=== PATIENT | female | born 1965 | race Caucasian/White ===

== ENCOUNTER 2017-03-29 10:01 | Emergency (ER) | payer OTHER ==
[~2017-03-29] VITALS: Ht 170.2 cm; Wt 64.0 kg
[2017-03-29 10:03] VITALS: BP 136/66; PULSE 65; RESP 16; TEMP 98.2; O2SAT 99
--- NOTE | 2017-03-29 10:17 | PD ---
HPI . left side back pain Chief Complaint: Back/ Neck Pain or Injury Time Seen by Provider: 10:17 Travel History International Travel<30 days: No Contact w/Intl Traveler<30days: No Traveled to known affect area: No History of Present Illness HPI 52 yr old female here with c/o left sided back pain for 1 week s/p fall. She has pain in her paraspinal muscles. She tells me she fell as soon as she turned 51 and hit her right side and has neurosurgery f/u. Then about a week ago she hit her left side. The pain seems to be in her muscles. She rates is as 9/10 and says she knows she can't get much meds here, but would be willing to get something and wait to drive home. She denies any complaints, no hx of kidney stones, no bowel or bladder dysfunction, no saddle anesthesia. PFSH Past Medical History ?: Not Social History Tobacco Use: No Allergies-Medications (Allergen,Severity, Reaction): Coded Allergies: No Known Allergies (Unverified , 03/29/17) Reported Meds & Prescriptions Reported Meds & Active Scripts Active Robaxin (Methocarbamol) 500 Mg Tab 500 Mg PO TID Ibuprofen 800 Mg Tab 800 Mg PO TID Review of Systems General / Constitutional: No: Fever Eyes: No: Visual changes HENT: No: Headaches Cardiovascular: No: Chest Pain or Discomfort Respiratory: No: Shortness of Breath Gastrointestinal: No: Abdominal Pain Genitourinary: No: Dysuria Musculoskeletal: Positive: Pain (left paraspinal muscles) Skin: No Rash Neurologic: No: Weakness Psychiatric: No: Depression Endocrine: No: Polydipsia Hematologic/Lymphatic: No: Easy Bruising Physical Exam Narrative GENERAL: AAO x 3, no acute distress, Well-nourished, well-developed patient. SKIN: Warm and dry. No visible rashes or bruising. HEAD: Normocephalic and atraumatic. EYES: No scleral icterus. No injection or drainage. ENT: No nasal drainage noted. Mucous membranes pink. Airway patent. NECK: Supple, trachea midline. No JVD. CARDIOVASCULAR: Regular rate and rhythm without murmurs, gallops, or rubs. RESPIRATORY: Breath sounds equal bilaterally. No accessory muscle use. No rhonchi or rales. GASTROINTESTINAL: Abdomen soft, non-tender, nondistended. EXTREMITIES: No cyanosis or edema. BACK: tenderness along left paraspinal muscles, no spinous process tenderness, ambulatory without difficulty NEURO: CN II-12 intact, cabin cleaner strength normal b/l, UE and LE 5/5, no focal deficits PSYCH: AAO x 3, normal affect. Data Data Last Documented VS Vital Signs Date Time Temp Pulse Resp B/P Pulse Ox O2 Delivery O2 Flow Rate FiO2 03/29/17 10:25 97.8 68 16 135/66 99 03/29/17 10:03 Room Air MDM Medical Decision Making Medical Screen Exam Complete: Yes Emergency Medical Condition: Yes Medical Record Reviewed: Yes Differential Diagnosis lumbar paraspinal muscle strain, lumbago, less likely nephrolithiasis Narrative Course 52 yr old female here with left paraspinal muscle tenderness. Exam is unremarkable except for paraspinal muscle tenderness. Unfortunate patient has driven here, therefore we'll hold off and administration of any Norflex or other agents. I discussed muscle relaxers and anti-inflammatories and patient is requesting pain medications. She says she doesn't know the difference between pain meds and muscle relaxers. I looked in eforsce and she has been on hydrocodone in December and January. I explained to her that muscle relaxers and anti-inflammatories will treat the inflammation and muscle tightness and that I do not recommend narcotic pain meds. She seemed understanding. I advised follow-up with her primary care provider if her symptoms persist. Diagnosis Primary Impression: Strain of lumbar paraspinal muscle Qualified Code: S39.012A - Strain of lumbar paraspinal muscle, initial encounter Patient Instructions: General Instructions Additional Instructions: Muscle relaxers can cause drowsiness. Do not drive, swim or operate heavy machinery while using these medications. If your pain persists past 7-10 days, please follow-up with her primary care provider. Please return to emergency department if your symptoms return or worsen. Follow up with your primary care provider. Take medications as prescribed. Med/Other Pt SpecificInfo: Prescription(s) given Scripts Methocarbamol (Robaxin)500 Mg [id number] Mg PO TID #21 TAB Prov:VazquezMirna 03/29/17 Ibuprofen 800 Mg [id number] Mg PO TID #21 TAB Prov:Mirna Vazquez DO 03/29/17 Disposition: 01 DISCHARGE HOME Condition: Stable Mangali,Makayla PA Mar 29, 2017 10:17
[2017-03-29] MEDS ORDERED: IBUP800T23 PO (10:21)
[2017-03-29] MEDS ORDERED: ROBA500T PO (10:21)
[2017-03-29 10:25] VITALS: BP 135/66; TEMP 97.8
== END 2017-03-29 10:28 | disposition home or self-care (01) ==
LOC: NEPK 10:01
DX: S39.012A Strain of muscle, fascia and tendon of lower back, initial encounter (principal); Z79.899 Other long term (current) drug therapy; W18.30XA Fall on same level, unspecified, initial encounter
CPT/HCPCS: 99283

== ENCOUNTER 2017-06-21 14:51 | Emergency (ER) | payer OTHER ==
[~2017-06-21] VITALS: Ht 170.2 cm; Wt 82.0 kg
[~2017-06-21 14:51] MED LIST: IBUP1TAB7 PO; ROBA500T PO
[2017-06-21 14:54] VITALS: BP 127/71; PULSE 88; RESP 14; TEMP 98.9; O2SAT 97
--- NOTE | 2017-06-21 15:02 | PD ---
Physical Exam Date Seen by Provider: Jun 21, 2017 Time Seen by Provider: 14:59 Narrative 52 yo female here for evaluation of fall. Happened yesterday. Her right knee gave out on her. Injured her head. Ringing in the ears. Blurry vision. No LOC. Darkness going to the left side. No blood thinners. Vitals are stable in triage. Awaiting bed placement. Data Data Last Documented VS Vital Signs Date Time Temp Pulse Resp B/P (MAP) Pulse Ox O2 Delivery O2 Flow Rate FiO2 06/21/17 14:54 98.9 88 14 127/71 (89) 97 Room Air Orders Orders Ct Brain W/O Iv Contrast(Rout) (06/21/17 15:02) Ct Cerv Spine W/O Contrast (06/21/17 15:02) MDM Medical Record Reviewed: Yes Supervised Visit with TEVIN: Jaime Barnett Jun 21, 2017 15:02
--- NOTE | 2017-06-21 15:37 | RADRPT ---
EXAM DATE/TIME: 06/21/2017 15:27 [facility] COMPARISON: No previous studies available for comparison. INDICATIONS : Trauma; fall, hit head on floor, blurry vision and ringing in ears. RADIATION DOSE: 34.86 CTDIvol (mGy) MEDICAL HISTORY : None SURGICAL HISTORY : None. ENCOUNTER: Initial ACUITY: 1 day PAIN SCALE: 7/10 LOCATION: Right cranial TECHNIQUE: Multiple contiguous axial images were obtained of the head. Using automated exposure control and adj ustment of the mA and/or kV according to patient size, radiation dose was kept as low as reasonably a chievable to obtain optimal diagnostic quality images. DICOM format image data is available electro nically for review and comparison. FINDINGS: CEREBRUM: The ventricles are normal for age. No evidence of midline shift, mass lesion, hemorrhage or acute in farction. No extra-axial fluid collections are seen. POSTERIOR FOSSA: The cerebellum and brainstem are intact. The 4th ventricle is midline. The cerebellopontine angle i s unremarkable. EXTRACRANIAL: The visualized portion of the orbits is intact. SKULL: The calvaria is intact. No evidence of skull fracture. CONCLUSION: 1. No acute intracranial abnormality. Chester Womack MD on June 21, 2017 at 15:34 Board Certified Radiologist. This report was verified electronically.
--- NOTE | 2017-06-21 15:47 | RADRPT ---
EXAM DATE/TIME: 06/21/2017 15:31 [facility] COMPARISON: No previous studies available for comparison. INDICATIONS : Trauma; fall, hit head on floor. RADIATION DOSE: 23.52 CTDIvol (mGy) MEDICAL HISTORY : None SURGICAL HISTORY : None. ENCOUNTER: Initial ACUITY: 1 day PAIN SCALE: 2/10 LOCATION: Right neck TECHNIQUE: Volumetric scanning of the cervical spine was performed. Multiplanar reconstructions in the sagittal, coronal and oblique axial planes were performed. Using automated exposure control and adjustment o f the mA and/or kV according to patient size, radiation dose was kept as low as reasonably achievable to obtain optimal diagnostic quality images. DICOM format image data is available electronically f or review and comparison. FINDINGS: Vertebral body heights are maintained. Osseous structures are intact without evidence for acute bony fracture. Dens is intact. Sagittal alignment is maintained. There is a normal C1-2 relationship. Face ts are normally aligned. Degenerative spondylosis of the lower lumbar spine most prominent at C5-7 wi th disc space narrowing and posterior disc osteophytes. There is no significant prevertebral soft tis angie hematoma. No significant cervical adenopathy or gross mass. The thyroid appears unremarkable. Vis ualized lung apices are clear without pneumothorax. CONCLUSION: 1. No acute fracture or subluxation. Aaron Dunn MD on June 21, 2017 at 15:42 Board Certified Radiologist. This report was verified electronically.
--- NOTE | 2017-06-21 18:34 | PD ---
HPI Chief Complaint: Head Injury Time Seen by Provider: 18:20 Travel History International Travel<30 days: No Contact w/Intl Traveler<30days: No Traveled to known affect area: No History of Present Illness HPI 52-year-old female presents to the emergency department for evaluation after she fell, hitting her head today just prior to arrival. Patient states that her right knee gave out and she fell hitting her head. She reports positive loss of consciousness, not sure for how long. Patient states she vomited 1. She denies headache. She reports history of blurry vision. She also states that she has ringing in her ears. Patient reports chronic neck and back pain from previous accident. She states her neck pain is slightly worse since the fall. Patient states that she takes an unknown pain pill for her chronic back pain. She states she has not like to take medications. She denies any other chronic medical problems. Patient denies any chest pain or shortness breath. No abdominal pain. Patient has been ambulatory. PFSH Past Medical History Diminished Hearing: No ?: Not Menopausal: Yes Social History Alcohol Use: Yes (OCASSIONALLY ) Tobacco Use: No Substance Use: No (PT DENIES) Allergies-Medications (Allergen,Severity, Reaction): Coded Allergies: No Known Allergies (Unverified , 03/29/17) Reported Meds & Prescriptions Reported Meds & Active Scripts Active Robaxin (Methocarbamol) 500 Mg Tab 500 Mg PO TID Ibuprofen 800 Mg Tab 800 Mg PO TID Review of Systems Except as stated in HPI: all other systems reviewed are Neg Physical Exam Narrative GENERAL: Well-nourished, well-developed female patient, ambulatory with a steady gait. Afebrile. SKIN: Focused skin assessment warm/dry. HEAD: Normocephalic. Atraumatic. EYES: No scleral icterus. No injection or drainage. NECK: Supple, trachea midline. No JVD or lymphadenopathy. CARDIOVASCULAR: Regular rate and rhythm without murmurs, gallops, or rubs. RESPIRATORY: Breath sounds equal bilaterally. No accessory muscle use. Lungs sounds are clear to auscultation. GASTROINTESTINAL: Abdomen soft, non-tender, nondistended. MUSCULOSKELETAL: No cyanosis, or edema. Bilateral upper and lower extremity strength 5/5. All extremities are neurovascularly intact. BACK: Nontender without obvious deformity. No CVA tenderness. Data Data Last Documented VS Vital Signs Date Time Temp Pulse Resp B/P (MAP) Pulse Ox O2 Delivery O2 Flow Rate FiO2 06/21/17 14:54 98.9 88 14 127/71 (89) 97 Room Air Orders Orders Ct Brain W/O Iv Contrast(Rout) (06/21/17 15:02) Ct Cerv Spine W/O Contrast (06/21/17 15:02) Ed Discharge Order (06/21/17 18:33) MDM Medical Decision Making Medical Screen Exam Complete: Yes Emergency Medical Condition: Yes Medical Record Reviewed: Yes Differential Diagnosis Last Impressions Head CT 06/21/17 1502 Signed Impressions: Service Date/Time: Wednesday, June 21, 2017 15:27 - CONCLUSION: 1. No acute intracranial abnormality. Chester Womack MD Cervical Spine CT 06/21/17 1502 Signed Impressions: Service Date/Time: Wednesday, June 21, 2017 15:31 - CONCLUSION: 1. No acute fracture or subluxation. Aaron Dunn MD Narrative Course 52-year-old female presents to the emergency department for evaluation after she fell, hitting her head. CT of the brain shows no acute intracranial abnormality. CT of cervical spine shows no fracture or subluxation. Patient states she would like to go home. Patient will be discharged. She declines prescription for Zofran for nausea. Patient is instructed to follow up with her primary care physician. She is return here for any acute worsening of symptoms. Patient verbalizes agreement and understanding. The patient was discharged in stable condition with instructions, including return instructions and follow up instructions. Diagnosis Primary Impression: Closed head injury Qualified Codes: S09.90XA - Unspecified injury of head, initial encounter Additional Impression: Cervical strain, acute Qualified Codes: S16.1XXA - Strain of muscle, fascia and tendon at neck level , initial encounter Referrals: Primary Care Physician call for appointment Patient Instructions: Cervical Strain (ED), General Instructions, Head Injury ( ED) Additional Instructions: Follow-up with your primary care physician. Return to the emergency department for any acute worsening of symptoms. Med/Other Pt SpecificInfo: No Change to Meds Disposition: 01 DISCHARGE HOME Condition: Stable Delmi Goldsmith Jun 21, 2017 18:34
== END 2017-06-21 18:53 | disposition home or self-care (01) ==
LOC: NEPD 14:51
DX: S09.90XA Unspecified injury of head, initial encounter (principal); S16.1XXA Strain of muscle, fascia and tendon at neck level, initial encounter; W18.39XA Other fall on same level, initial encounter
CPT/HCPCS: 70450; 72125